=== PATIENT | male | born 1955 | race Caucasian/White ===

== ENCOUNTER 2018-09-27 14:23 | Emergency (ER) | payer SELFPAY ==
[~2018-09-27] VITALS: Ht 175.3 cm; Wt 65.9 kg
[2018-09-27] MEDS ORDERED: HYDROCODONE/ACETAMINOPHEN 5-325 MG TABLET PO ONE (16:00)
[2018-09-27] MEDS ORDERED: HYDROmorphone 2 MG/ML SYRINGE IM ONE (18:00)
[2018-09-27 21:20] VITALS: BP 114/61
== END 2018-09-27 21:20 | disposition home or self-care (01) ==
LOC: EMS 14:26
DX: S92.001A Unspecified fracture of right calcaneus, initial encounter for closed fracture (principal); R03.0 Elevated blood-pressure reading, without diagnosis of hypertension; W01.0XXA Fall on same level from slipping, tripping and stumbling without subsequent striking against object, initial encounter; Y93.89 Activity, other specified; Y92.098 Other place in other non-institutional residence as the place of occurrence of the external cause; Y99.8 Other external cause status
CPT/HCPCS: 29515; 72100; 73610; 73630 ×2; 73700; 96372; 99284; J1170

== ENCOUNTER 2023-01-09 08:52 | Emergency (ER) | payer MEDICARE, MEDICAID ==
[~2023-01-09] VITALS: Ht 175.3 cm; Wt 70.5 kg
[2023-01-09 08:57] VITALS: TEMP 97.5
[2023-01-09] MEDS ORDERED: LIDOCAINE 1% 10 ML VIAL SQ ONE (12:30)
[2023-01-09] MEDS ORDERED: TraMADol HCL 50 MG TABLET PO ONE (12:30)
[2023-01-09 13:30] VITALS: BP 129/77; PULSE 72; RESP 18
[2023-01-09] MEDS ORDERED: BACTDSB PO (13:46)
[2023-01-09] MEDS ORDERED: CEPH-558 PO (13:46)
== END 2023-01-09 14:20 | disposition home or self-care (01) ==
LOC: EMS 08:53
DX: L02.31 Cutaneous abscess of buttock (principal)
CPT/HCPCS: 99283; 10060; J3490

== ENCOUNTER 2023-01-11 16:06 | Emergency (ER) | payer MEDICARE, MEDICAID ==
[~2023-01-11] VITALS: Ht 175.3 cm; Wt 70.5 kg
[~2023-01-11 16:06] MED LIST: BACTDSB PO; CEPH-558 PO
[2023-01-11 16:08] VITALS: TEMP 98.6
[2023-01-11 17:45] VITALS: BP 115/71; PULSE 75; RESP 15
== END 2023-01-11 18:26 | disposition home or self-care (01) ==
LOC: EMS 16:08
DX: L02.31 Cutaneous abscess of buttock (principal); F17.210 Nicotine dependence, cigarettes, uncomplicated
CPT/HCPCS: 99281; Z7502